=== PATIENT | male | born 1995 | race Caucasian/White ===

== ENCOUNTER 2023-06-01 11:55 | Emergency (ER) | payer MEDICAID ==
[~2023-06-01] VITALS: Ht 177.8 cm; Wt 97.3 kg
[2023-06-01 12:04] VITALS: BP 144/90; PULSE 60; RESP 18; TEMP 98.9; O2SAT 98
== END 2023-06-01 14:36 | disposition home or self-care (01) ==
LOC: ER 11:56
DX: S63.612A Unspecified sprain of right middle finger, initial encounter (principal); X58.XXXA Exposure to other specified factors, initial encounter; Y93.89 Activity, other specified; Y92.89 Other specified places as the place of occurrence of the external cause; Y99.8 Other external cause status
CPT/HCPCS: 73140; 99283